=== PATIENT | male | born 2000 | race Caucasian/White ===

== ENCOUNTER 2022-04-28 12:42 | Emergency (ER) | payer SELFPAY ==
[~2022-04-28] VITALS: Ht 170.2 cm; Wt 88.7 kg
[2022-04-28] MEDS ORDERED: AMOX875T2 PO (13:18)
[2022-04-28] MEDS ORDERED: OMEP40CA4 PO (13:18)
[2022-04-28] MEDS ORDERED: PROAAER10 INH ×3 (13:18→18:23)
[2022-04-28] MEDS ORDERED: IPRATROPIUM 0.5MG/ALBUTEROL 2.5MG INH SOL UD 3ML (DUONEB) NEB ONE (13:35)
[2022-04-28 14:30] LABS: BASO # 0.1 10^3/uL (0.0-0.2); BASO % 1.1 % (0.0-1.0); EOS # 0.6 10^3/uL (0.0-0.5); EOS % 5.7 % (0.0-3.0); HEMOGLOBIN 17.2 g/dl (13.5-17.5); LYMPH # 2.6 10^3/uL (1.5-5.0); LYMPH % 25.5 % (24.0-44.0); MEAN CORPUSCULAR HEMOGLOBIN 30.9 pg (27.0-33.0); MEAN CORPUSCULAR VOLUME 84.4 fl (80.0-96.0); MONO # 0.9 10^3/uL (0.0-0.8); MONO % 8.5 % (2.0-8.0); RED BLOOD COUNT 5.57 10^6/uL (4.30-6.10); WHITE BLOOD COUNT 10.2 10^3/uL (4.0-10.0)
[2022-04-28] MEDS ORDERED: NS 1,000 ML IV ONE (14:40)
[2022-04-28 14:50] LABS: MEAN CORPUSCULAR HGB CONC 36.6 g/dl (32.0-36.5)
[2022-04-28 14:58] LABS: ALBUMIN 4.6 GM/DL (3.2-5.2); ALT/SGPT 31 U/L (12-78); BILIRUBIN,DIRECT 0.3 MG/DL (0.0-0.2); BILIRUBIN,TOTAL 0.6 MG/DL (0.2-1.0); BLOOD UREA NITROGEN 12 MG/DL (7-18); CALCIUM LEVEL 9.3 MG/DL (8.5-10.1); CARBON DIOXIDE LEVEL 23 MEQ/L (21-32); CHLORIDE LEVEL 110 MEQ/L (98-107); GLOMERULAR FILTRATION RATE > 60.0 (>60); GLUCOSE, FASTING 127 MG/DL (70-100); POTASSIUM SERUM 3.8 MEQ/L (3.5-5.1); SODIUM LEVEL 142 MEQ/L (136-145); TOTAL PROTEIN 7.5 GM/DL (6.4-8.2)
[2022-04-28] MEDS ORDERED: ISOVUE-370 76% 100ML VIAL As Ordered ONE (15:54)
[2022-04-28] MEDS ORDERED: BENZONATATE 100MG CAPSULE PO ONE ×2 (16:40→18:20)
[2022-04-28] MEDS ORDERED: BENZ200C70 PO ×2 (18:01→18:25)
[2022-04-28 18:25] VITALS: BP 122/67
== END 2022-04-28 18:29 | disposition home or self-care (01) ==
LOC: M ED 12:42
DX: R05.9 Cough, unspecified (principal); R07.89 Other chest pain; R06.02 Shortness of breath; R06.2 Wheezing; Z87.01 Personal history of pneumonia (recurrent); K21.9 Gastro-esophageal reflux disease without esophagitis
CPT/HCPCS: 71046; 71275; 80048; 80076; 83605; 84484; 85025; 85379; 87040; 87486; 87581; 87633; 87798; 93005; 94010; 94640; 94760; 96360; 96361; 99284; Q9967